=== PATIENT | female | born 2000 | race Caucasian/White ===

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

== ENCOUNTER 2019-02-26 13:03 | Emergency (ER) | payer MEDICAID ==
[2019-02-26 13:39] VITALS: BP 134/73
--- NOTE | 2019-02-26 14:40 | ER Document Report ---
HPI - HPI Patient complains to provider of: left leg pain Time Seen by Provider: 02/26/19 14:26 Pain Level: 4 Context: Pt. is a 18 yo female presents to the ER with a "cyst" on her right lower extremity for over a year. States this lesion has not increased or decreased in size. States it does sometimes hurt when she walks on her right lower extremity or when she bends her knee. Patient's denying any pain in her calf, redness or swelling around the site. Patient's denies any trauma that she knows of. When I asked the patient What presents her to the emergency room she states "I thought you could drain it or something." Patient has no medical problems, takes no medications on a daily basis, states she is allergic to codeine. - CONSTITUTIONAL Constitutional: DENIES: Fever, Chills - EENT EENT: DENIES: Sore Throat, Ear Pain, Eye problems - NEURO Neurology: DENIES: Headache, Weakness, Vision blurred, Dizzinesss / Vertigo - CARDIOVASCULAR Cardiovascular: DENIES: Chest pain - RESPIRATORY Respiratory: DENIES: Trouble Breathing, Coughing - GASTROINTESTINAL Gastrointestinal: DENIES: Abdominal Pain, Black / Bloody Stools - URINARY Urinary: DENIES: Dysuria, Urgency, Frequency - REPRODUCTIVE Reproductive: DENIES: : - MUSCULOSKELETAL Musculoskeletal: REPORTS: Extremity pain Past Medical History - General Information source: Patient - Social History Smoking Status: Current Every Day Smoker Chew tobacco use (# tins/day): No Frequency of alcohol use: None Drug Abuse: None Family History: Malignancy, CAD, CVA, DM, Hyperlipidemia, Hypertension Patient has suicidal ideation: No Patient has homicidal ideation: No Renal/ Medical History: Denies: Hx Peritoneal Dialysis GI Medical History: Reports: Hx Gastroesophageal Reflux Disease - Immunizations Immunizations up to date: Yes Hx Diphtheria, Pertussis, Tetanus Vaccination: Yes - 09/20/2010 Vertical Provider Document - CONSTITUTIONAL Agree With Documented VS: Yes Notes: GENERAL: Alert, interacts well. No acute distress. HEAD: Normocephalic, atraumatic. EYES: Pupils equal, round, and reactive to light. Extraocular movements intact. ENT: Oral mucosa moist, tongue midline. NECK: Full range of motion. Supple. Trachea midline. LUNGS: Clear to auscultation bilaterally, no wheezes, rales, or rhonchi. No respiratory distress. HEART: Regular rate and rhythm. No murmur ABDOMEN: Soft, non-tender. Non-distended. Bowel sounds present in all 4 quadrants. EXTREMITIES: Moves all 4 extremities spontaneously. No edema, normal radial and dorsalis pedis pulses bilaterally. No cyanosis. 5 out of 5 strength all 4 extremities. No pain in the right or left calf area no pain upon flexion or extension of the left ankle. Patient denies pain in her right knee, only states pain is over the right proximal medial tib-fib area. BACK: no cervical, thoracic, lumbar midline tenderness. No saddle anesthesia, normal distal neurovascular exam. NEUROLOGICAL: Alert and oriented x3. Normal speech. PSYCH: Normal affect, normal mood. SKIN: Warm, dry, normal turgor. There does appear to be a 3 cm x 3 cm mildly well demarcated slight area of ecchymosis noted right proximal medial tib-fib area. No fluctuance, induration, erythema noted. - INFECTION CONTROL TRAVEL OUTSIDE OF THE [place] IN LAST 30 DAYS: No Course - Re-evaluation Re-evalutation: 02/26/19 14:42 I discussed with patient I have successfully ruled out a potential deep vein thrombosis or abscess, cellulitic tissue. I discussed with her that this lesion does appear to be an ecchymotic area or a bruise. Patient is requesting that I "drain it." States she has a history of cysts and feels as though this is what it is. The lesion is nonraised and does not appear to be cystic in nature. I have offered the patient an x-ray as it does appear ecchymotic and patient could have inadvertently bumped that area and not known about it. Patient wishes to be discharged and states "I will go to another doctor who can fix this." - Vital Signs Vital signs: Temp Pulse Resp BP Pulse Ox 98.2 F 70 18 134/73 H 100 02/26/19 13:39 02/26/19 13:39 02/26/19 13:39 02/26/19 13:39 02/26/19 13:39 Discharge - Discharge Clinical Impression: Ecchymosis Condition: Stable Disposition: HOME, SELF-CARE Instructions: Ice & Elevation ([facility]) Additional Instructions: As we discussed you have been seen and treated in the emergency department for what appears to be a bruise on your right lower extremity. I have been able to successfully rule out a deep vein thrombosis or a pocket of infection. Please make sure you follow-up with your primary care provider, [facility] for continued care. Please return to the emergency room for any other concerns. Forms: Return to Work Referrals: [facility] [Provider Group] - Follow up as needed [facility] [Provider Group] - Follow up as needed
== END 2019-02-26 14:50 | disposition home or self-care (01) ==
LOC: ER 13:03
DX: R58 Hemorrhage, not elsewhere classified (principal); M79.661 Pain in right lower leg; F17.200 Nicotine dependence, unspecified, uncomplicated
CPT/HCPCS: 99282